=== PATIENT | male | born 1995 | race Caucasian/White ===

== ENCOUNTER → 2023-06-22 08:10 | Outpatient (REF) | payer BC, SELFPAY | LOC: RAD 08:10 | PROVIDERS: ATTENDING PHYSICIAN Family Medicine | DX: R10.12 Left upper quadrant pain (principal) | CPT/HCPCS: 76700 ==

== ENCOUNTER 2025-01-08 15:05 | Emergency (ER) | payer BC, SELFPAY ==
[2025-01-08] VITALS (17 sets, daily range): BP systolic 110–164; BP diastolic 53–81; BMI 23.8
--- NOTE | 2025-01-08 16:25 | ED.GENMED ---
History of Present Illness
General
Chief Complaint: Musculo-Skeletal Complaint
Source: patient
Exam Limitations: none
Time Seen by Provider: 01/08/25 15:55
Nursing documentation reviewed up to this point in time: agreed with
History of Present Illness
History of Present Illness:
29-year-old male with past medical history as noted presents to the ER for evaluation of the left shoulder injury. Patient was playing paintball and tried to slide and tumbled, injuring his left shoulder. He has pain in the left shoulder and
believes it is dislocated. He denies any other injuries or complaints�no head trauma, no headache or neck pain, back pain, rib pain. Was ambulatory after the fall.
Past History
Past History
ED Past Medical History: Arrthythmia (PVCs)
ED Past Surgical History: None
Social History
Tobacco: Non-smoker
Alcohol: Occasional
Drug: Marijuana
Personal: Single
Employment: Not employed
Review of Systems
Review of Systems
All Other Systems: ROS reviewed and negative except as documented in HPI and ROS
Respiratory: Denies trouble breathing
Cardiac: Denies chest pain
ABD/GI: Denies abdominal pain
Musculoskeletal: Reports joint pain; Denies neck pain or back pain
Neurological: Denies headache
Phy Exam
Physical Exam
Physical Exam:
General: Awake, alert, oriented x3; appears uncomfortable
Head: Normocephalic, atraumatic
Eyes: Conjunctiva normal
Throat: Airway intact, handling secretions
Neck: Trachea midline, no cervical spine tenderness, good range of motion without pain
Lungs: Breathing comfortably with no distress, no tachypnea or hypoxia
Heart: Regular rate; no chest wall tenderness
Abd: Soft, non distended, nontender
Neuro: Cranial nerves grossly intact, speech fluid; motor and sensory intact radial, median, ulnar nerve distribution left upper extremity
Skin: No lacerations or abrasions noted
Extremities: Patient has deformity left shoulder with apparent inferior dislocation; he has no tenderness in the left elbow or wrist, strong left radial pulse and intact neurologic exam in the left upper extremity; rest of extremities appear
atraumatic
Scores
Heart Failure Risk
Heart Failure Risk Score: Not Applicable
Heart Score for Chest Pain Patients
STEMI patient?: Not applicable
Withdrawal Assessment of Alcohol
Withdrawal Assessment Completed?: Not applicable
Course
Orders/Labs/Results
Orders:
Orders
01/08/25 15:17
CR Shoulder, Trauma - Left Urgent
Comment:
Reason For Exam: pain deformity
01/08/25 16:05
Propofol [Diprivan] 20 ml .ROUTE .STK-MED
01/08/25 16:09
CR Shoulder - Left Min 2 View* Urgent
Comment:
Reason For Exam: post reduction
Vital Signs
Initial and Last Documented VS:
Initial Vital Signs
Temp Pulse Resp Pulse Ox
36.8 C 59 20 100
01/08/25 15:14 01/08/25 15:14 01/08/25 15:14 01/08/25 15:14
Last Documented Vital Signs
Temp Pulse Resp BP Pulse Ox
36.8 C 59 20 110/53 100
01/08/25 15:14 01/08/25 15:14 01/08/25 15:14 01/08/25 15:17 01/08/25 16:26
Procedures
Moderate Sedation
ASA Risk Score: Class I
Chart and allergies reviewed: Yes
Consent for anesthesia obtained: Yes
Time out completed (validating right patient & procedure): Yes
Moderate Sedation Start Time(when first medication is given): 16:13
History of difficult intubation: No
Airway free of obstruction: Yes
Patient has a gag reflex: Yes
Patient is able to open mouth: Yes
Patient has no dentures: Yes
Patient has no loose teeth: Yes
Medication administered by Provider during Moderate Sedation: IV Propofol (mg)
Total dose administered: 160
Time drug administered: 16:13
Moderate Sedation Procedure End Time: 16:25
Splinting/Sling Placement
Left Shoulder:
Procedure completed by: Dameon Jessica MD
Pre-splint extermity exam: neurovascular intact
Type of sling: sling fitted
Normal distal neurovascular exam?: Yes
Joint/Fracture Reduction
Left Shoulder:
Indication for procedure:: shoulder dislocation
Procedure completed by: Dameon Jessica MD
Consent form signed: Yes
Anesthesia/sedation: Moderate sedation
Injury was: closed
Further treatement: needs re-check only
Post reduction exam: stable
Capillary Refill: normal
Normal distal neurovascular exam?: Yes
MDM/Problems Addressed
Differential Diagnosis Includes:
Dislocation, fracture, sprain, AC separation
MDM/Problems Addressed:
29-year-old male presents to the ER for evaluation of a left shoulder injury. X-ray shows anterior dislocation, no clear fracture. Had a long discussion with the patient we will proceed with reduction under sedation as he does not feel he can
tolerate any movement without sedation.
Shoulder was successfully reduced under sedation as documented in procedure note. Patient tolerated procedure well. He was placed in a shoulder sling by me. Will plan to observe after sedation but can likely be discharged with orthopedic referral
after observation period.
*Radiology
Radiology exam reviewed: preliminary read by ED provider and radiology read reviewed
*Pulse Oximetry
SaO2: 100
Oxygen Mode of Delivery: Room air
Patient hypoxic: no (100%)
*Critical Care Note
Total Time (30-74mins, 75-104mins- exclusive of procedures): Not Applicable
Data Reviewed
Source: patient
ED Attending Note
-
Portions of this chart may have been created with voice recognition software.� Occasional wrong word or��sound alike� substitutions may have occurred due to the inherent limitations of voice recognition software.
Discharge Plan
Departure
Patient with high blood pressure during this ER visit?: No
Discharge Problem:
Anterior dislocation of left shoulder
Instructions: Shoulder Dislocation (DC), How to Use a Shoulder Sling, MODERATE SEDATION ADULT
Prescriptions:
No Action
No Current Medications
0
Referrals:
Alec Rogers MD [Active, Orthopedics] - Call in 1-3 days for appt
Activity Restrictions/Additional Instructions:
Thank you for visiting the Emergency Department at [facility].
1. Please schedule a follow up appointment as directed. Call first thing tomorrow morning to make an appointment.
2. If indicated, please take your medications as instructed and indicated on discharge paperwork.
3. If any of your symptoms do not improve, or persist, or become more severe within 6-12 hours, please return to the emergency department for further care.
4. Please return to the emergency department if you develop a headache, neck pain/stiffness, fever greater than 100.4F, chest pain, shortness of breath, persistent nausea, vomiting, slurred speech, difficulty walking, numbness/tingling, weakness,
signs of infection or any other symptoms that are worrisome to you.
Please call [phone] if you have any questions.
Interventions
Interventions:
*Risk Screen - Suicide Last Done: 01/08/25 15:14
*General Assessment Last Done: 01/08/25 15:14
*Neglect/Abuse Screening Last Done: 01/08/25 15:14
Discharge Date and Time
Print Language: AUSTR[place]
== END 2025-01-08 17:43 | disposition home or self-care (01) ==
LOC: EMR 15:05
PROVIDERS: EMERGENCY PHYSICIAN Emergency Medicine; FAMILY PHYSICIAN Family Medicine
DX: S43.015A Anterior dislocation of left humerus, initial encounter (principal); W18.49XA Other slipping, tripping and stumbling without falling, initial encounter; Y93.89 Activity, other specified
CPT/HCPCS: 99285; 23650; 73030

== ENCOUNTER → 2025-03-20 13:37 | Outpatient (REF) | payer BC, SELFPAY | LOC: MRI 3T 13:37 | PROVIDERS: ATTENDING PHYSICIAN Student in an Organized Health Care Education/Training Program; FAMILY PHYSICIAN Family Medicine | DX: S43.005A Unspecified dislocation of left shoulder joint, initial encounter (principal); M25.512 Pain in left shoulder | CPT/HCPCS: 23350; 73040; 73222 ==